=== PATIENT | male | born 1970 | race Caucasian/White ===

== ENCOUNTER 2025-01-18 07:54 | Day surgery (SDC) | payer OTHER, SELFPAY ==
[2025-01-11 12:58] VITALS: BMI 35.6
[2025-01-18] MEDS: LACTATED RINGERS 1,000 ML 42 ML IV ×2 (08:29→12:35)
[2025-01-18] MEDS: ACETAMINOPHEN 325 MG TABLET 975 MG PO (08:30)
[2025-01-18 08:39] VITALS: BP 154/94; PULSE 66; RESP 18; TEMP 36.8; O2SAT 96; BMI 35.6
--- NOTE | 2025-01-18 08:55 | P.HP_ITS ---
History of Present Illness History of Present Illness Date Patient Seen: 01/18/25 Time Patient Seen: 08:55 Chief complaint: SDC Narrative: Sriram comes in for his bilateral inguinal hernia repair and umbilical hernia repair with mesh. See the office note from December 15 for details. PFSH Medical History (Updated 12/15/24 @ 16:28 by Santiago Max MD) Anxiety Hypertension Surgical History (Updated 01/11/25 @ 13:00 by Monalisa Duffy RN) Hx of exploratory laparotomy Hx of hernia repair Social History Smoking Status: Current every day smoker alcohol intake: current Meds Home Medications and Allergies Home Medications Medication Instructions Recorded Confirmed Type atorvastatin 20 mg tablet (Lipitor) 20 mg PO DAILY 12/15/24 12/15/24 History lisinopril 20 mg tablet 20 mg PO DAILY 12/15/24 01/18/25 History Allergies Allergy/AdvReac Type Severity Reaction Status Date / Time No Known Drug Allergies Allergy Verified 01/18/25 08:25 Exam Vital Signs (past 8 hours): - 01/18/25 08:39 Temperature 98.3 F Pulse Rate 66 Respiratory Rate 18 Blood Pressure 154/94 H Pulse Oximetry 96 Const General: healthy appearing Resp Effort & Inspection: normal respiratory effort Assessment & Plan Assessment and plan (1) Bilateral inguinal hernia: Qualifiers: Obstruction and gangrene presence: without obstruction or gangrene Recurrence: not specified as recurrent Qualified Code(s): K40.20 - Bilateral inguinal hernia, without obstruction or gangrene, not specified as recurrent Status: Acute (2) Umbilical hernia: Qualifiers: Obstruction and gangrene presence: without obstruction or gangrene Qualified Code(s): K42.9 - Umbilical hernia without obstruction or gangrene Status: Acute Plan Laparoscopic bilateral inguinal hernia repair and umbilical hernia repair with mesh. Time-Based Coding :: [TOTAL MINUTES] spent with patient and on the chart (including review of chart, obtaining history, exam, reviewing outside data, placing orders, documenting exam and treatment plan, and counseling patient) on [DATE]. PROFEE Business Objects Analyst Document charge(s): No
[2025-01-18] MEDS: CEFAZOLIN 2 GM/100 ML PREMIX 100 ML IV (09:36)
[2025-01-18] MEDS: CEFAZOLIN VIAL 1 GM in SODIUM CHLORIDE 0.9% 100 ML IV (09:36)
[2025-01-18] MEDS: BUPIVACAINE 0.5% W/ EPI (PF) 30 ML VIAL INJ (10:11)
[2025-01-18 12:12] VITALS: BP 160/94; PULSE 83; RESP 21; TEMP 36.3; O2SAT 95
--- NOTE | 2025-01-18 12:15 | PM.OP.1 ---
Operative Date/Time/Diagnoses Date of procedure: 01/18/25 Time of procedure: 12:16 Pre-op diagnosis: Right direct inguinal hernia, left recurrent indirect inguinal hernia and umbilical hernia Post-op diagnosis: same Procedure & Clinicians Procedure: Laparoscopic bilateral inguinal hernia repair with mesh Umbilical hernia repair with mesh Same procedure as scheduled: Yes Surgeon: Santiago Max Manager Technical Support: Andres Rock Anesthesia Type: General Operative Notes Procedure in detail: The patient was given preoperative antibiotics. The patient was brought to the operating room, placed on the table in the supine position with the arms tucked and general anesthesia was induced. The abdomen was prepped and draped in the usual fashion. A time-out was performed. A 1 cm supraumbilical incision was created and dissection was carried down to the fascia. There was a fat containing umbilical hernia. The sac was amputated. The fascial defect was less than 1 cm and had to be opened transversely to 1 cm. The Viraj port was placed and the abdomen was insufflated to 15 mmHg. The camera was inserted and there was no evidence of any injury from the entry. 5 mm ports were placed under direct vision in the mid left and mid right abdomen. The patient was positioned in steep Trendelenburg. We started on the right side. We created a bright peritoneal flap. The peritoneum was dissected off the right cord structures revealing a fat-containing direct defect which was reduced. A large right Bard mesh was brought in and placed over the defect with the medial edge against Manny's ligament. We then closed the peritoneal flap with a running 3-0 barbed suture. Next we turned our attention to the left side. The peritoneum was dissected off the left cord structures. There was a large indirect recurrent defect and there was significant cord fat versus cord lipoma that was reduced. A large left Bard mesh was brought in and placed over the defect with the medial edge against Manny's ligament. Most of the fat was placed into the concavity of the mesh. We then closed the peritoneal flap with a running 3-0 barbed suture. There was a rent in the peritoneum that was repaired with an additional 3-0 barbed suture. We took one last look around the abdomen and saw no other abnormalities. The suture was removed and accounted for. The 5 mm ports were removed under direct vision. The abdomen was desufflated. The Viraj port was removed. Additional local was injected into the fascia and the fascial incision was closed with 2 interrupted [id number] 0 Vicryl sutures. We then cleared some of the subcutaneous adipose tissue off the anterior sheath circumferentially to create space for a mesh. We trimmed a small piece of polypropylene mesh to about 3 cm x [address] it over the repair. It was glued in place with 2 mL of Tisseel. The skin incisions were closed with 4 Monocryl, Steri-Strips and Band-Aids. EBL: 10 mL Specimen: None Andres ENRIQUEZ provided assistance with exposure, retraction and closure of incisions. Post-operative Condition: stable Disposition: PACU
[2025-01-18 12:17] VITALS: BP 152/98; PULSE 80; RESP 20; TEMP 36.4; O2SAT 95
[2025-01-18 12:23] VITALS: BP 153/99; PULSE 79; RESP 20; TEMP 36.4; O2SAT 95
[2025-01-18 12:29] VITALS: BP 155/97; PULSE 78; RESP 18; TEMP 36.4; O2SAT 94
[2025-01-18] MEDS: hydrOXYzine 50 MG/ML INJ 25 MG IM (13:03)
[2025-01-18] MEDS: ONDANSETRON 4 MG/2 ML INJ IV (13:03)
[2025-01-18 13:12] VITALS: BP 150/94; PULSE 64; RESP 16; TEMP 36.2; O2SAT 95
--- NOTE | 2025-01-18 13:42 | PC.NURSE ---
taken out by KYLE Jones
== END 2025-01-18 13:42 | disposition home or self-care (01) ==
PROVIDERS: PCP Family Medicine; Referring Provider Surgery; Visit Provider Surgery
PROC: 0YQ64ZZ Repair Left Inguinal Region, Percutaneous Endoscopic Approach (ICD-10-PCS; CPT 49651; principal; 2025-01-18 09:30)
PROC: (CPT 49651; 2025-01-18 09:30)
DX: K40.91 Unilateral inguinal hernia, without obstruction or gangrene, recurrent (principal); K40.90 Unilateral inguinal hernia, without obstruction or gangrene, not specified as recurrent; K42.9 Umbilical hernia without obstruction or gangrene; F17.210 Nicotine dependence, cigarettes, uncomplicated
CPT/HCPCS: 49651; 49650; C1781; C9250; J0330; J0690; J1100; J1171; J2250; J2405; J2704; J3010; J3410; J3490

== ENCOUNTER → 2025-02-22 06:49 | Outpatient (CLI) | payer OTHER, SELFPAY ==
--- NOTE | 2025-02-22 06:50 | DI.CT.S_ITS ---
PROCEDURE: CT ABDOMEN PELVIS W CON INDICATIONS: Left groin swelling TECHNIQUE: Oral contrast was given in this patient. After the administration of intravenous contrast, axial sections acquired from the lung bases to the pubic symphysis. Coronal and sagittal reformats were performed. For radiation dose reduction, the following was used: automated exposure control, adjustment of mA and/or kV according to patient size. COMPARISON: None. FINDINGS: Image quality: Diagnostic. Lower Chest: No significant findings. ABDOMEN: Liver: No solid mass. Gallbladder: No radiopaque gallstones or wall thickening. Biliary ducts: No biliary dilation. Pancreas: No ductal dilation. Spleen: Size is within normal limits. Adrenal Glands: No adrenal nodules. Kidneys and Ureters: No hydronephrosis. No solid mass. No complex renal cystic lesion which requires follow up.. Stomach and Bowel: Normal colonic caliber, without significant wall thickening. A normal appendix is noted. No dilated loops of small bowel are seen. Peritoneum: No abnormal intraperitoneal fluid. No free air. Ventral Wall: There is a mild amount of fluid density seen involving the umbilicus. Abdominal Nodes: No retroperitoneal or mesenteric adenopathy by size criteria. Vessels: Aorta and inferior vena cava are normal in size. PELVIS: Pelvic Organs: There is a moderate left-sided hydrocele. Bladder: No bladder wall thickening, accounting for underdistention. Pelvic Nodes: No enlarged lymph nodes. Miscellaneous: Moderately sized bilateral fat containing inguinal hernias are seen. Bones: No aggressive osseous abnormality. Age-appropriate bony degenerative changes are seen. Mild transitional lumbar anatomy is seen, with partial lumbarization of the S1 level on the left. IMPRESSION: Moderately sized bilateral fat containing inguinal hernias can be seen. Moderate left-sided hydrocele. A mild amount of fluid density can be seen involving the umbilicus. Additional findings: Transitional S1, which is partially lumbarized on the left Dictated by: Hank Dos Santos M.D. on 02/22/2025 at 12:40 Approved by: Hank Dos Santos M.D. on 02/22/2025 at 12:43
[2025-02-22 07:39] LABS: Estimated Glomerular Filt Rate > 60 mL/min (>60)
== END ==
LOC: CT 06:50
PROVIDERS: PCP Family Medicine; Referring Provider Surgery; Visit Provider Surgery
DX: K40.20 Bilateral inguinal hernia, without obstruction or gangrene, not specified as recurrent (principal); K42.9 Umbilical hernia without obstruction or gangrene; N43.3 Hydrocele, unspecified
CPT/HCPCS: 36415; 74177; 82565; Q9967

== ENCOUNTER 2025-05-25 06:31 | Day surgery (SDC) | payer OTHER, SELFPAY ==
[2025-05-19 09:21] VITALS: BMI 36.6
[2025-05-25] VITALS (9 sets, daily range): BP systolic 123–171; BP diastolic 82–109; PULSE 56–96; RESP 11–17; TEMP 36.2–36.9; O2SAT 93–99; BMI 34.9
--- NOTE | 2025-05-25 06:55 | P.HP_ITS ---
History of Present Illness History of Present Illness Date Patient Seen: 05/25/25 Time Patient Seen: 06:55 Chief complaint: [facility] [place] Narrative: 54 y/o M returns to OR to have a left hydrocelectomy performed for management of his left hydrocele. Briefly, he underwent a laparoscopic bilateral inguinal hernia repair with mesh in late December of 2024. He noted severe swelling and bruising of his scrotum postoperatively. He admits that the bruising has completely resolved and the swelling has decreased by roughly 25%. He was last evaluated in the Urology clinic in February of 2025, however, he left to go fishing in [place] on April 08 for 5 weeks and needed to do so financially. Of note, he does not take any blood thinners or NSAIDs on a regular basis. He had a CT Abd/Pel in late January of 2025 that was notable for moderately sized bilateral fat containing inguinal hernias as well as a moderate sized left hydrocele. FOR[facility]LY [facility] Medical History HLD (hyperlipidemia) Anxiety Hypertension Surgical History Hx of splenectomy (~1988) Hx of bilateral inguinal hernia repair (01/18/25) Hx of exploratory laparotomy Hx of hernia repair Social History alcohol intake: current Meds Home Medications and Allergies Home Medications ?Medication ?Instructions ?Recorded ?Confirmed ?Type atorvastatin 20 mg tablet (Lipitor) 20 mg PO DAILY 05/25/25 History lisinopril 20 mg tablet 20 mg PO DAILY 12/15/2404/28 History Allergies Allergy/AdvReac Type Severity Reaction Status Date / Time No Known Drug Allergies Allergy Verified 05/25/25 06:51 Review of Systems Review of Systems Narrative: CONSTITUTIONAL: Denies weight loss, fevers, chills. HEENT: Denies change in vision, hearing. RESP: Denies SOB, cough. CV: Denies palpations, CP. GI: Denies abdominal pain, nausea, vomiting, diarrhea. : Denies dysuria, hematuria, inability to void. MSK: Denies myalgia, joint pain. SKIN: Denies rash, pruritus. NEURO: Denies headache, syncope. PSYCH: Denies recent change in mood, anxiety, depression. Exam Narrative Exam Narrative: GEN: Alert and oriented X3. No acute distress. Well-nourished. EYES: PERRLA, EOMI. HENT: Moist mucus membranes, no scleral icterus, normal neck ROM. RESP: Unlabored breathing, equal rise and fall of chest bilaterally, no cyanosis appreciated. CV: No peripheral edema, unremarkable heart rate. ABD: Soft, non-tender, non-distended, no palpable masses. : Unremarkable penis, no urethral discharge, no meatal stenosis. Descended right testicle, firm, no testicular mass, small right hydrocele. Unable to definitively palpable left testicle, moderate left hydrocele, left inguinal hernia noted. EXT: No edema, clubbing or cyanosis. SKIN: No rashes or lesions. NEURO: No focal neurologic deficits, CN II-XII grossly intact. PSYCH: Cooperative, appropriate mood and affect. Assessment & Plan Assessment and plan (1) Hydrocele, left: Status: Acute Plan: 54 y/o M noted to have a moderate left hydrocele following a bilateral laparoscopic inguinal hernia repair with mesh. Discussed that his left testicle is otherwise very difficult to definitively palpate, therefore, would not recommend management via percutaneous drainage of his hydrocele in clinic. Discussed that a hydrocele itself does not negatively impact the health of the testicle or its ability to produce testosterone or sperm. Discussed risks of the procedure to include pain, bleeding, infection, 2-3% chance of recurrence, infertility, damage to left spermatic cord leading to testicular atrophy and/or loss, spermatocele formation, poor cosmesis, chronic pain. Discussed that performing either percutaneous drainage or a formal left hydrocelectomy would be complicated by the recurrence of his left inguinal hernia, therefore, would not recommend treatment at this point and would strongly recommend a left hydrocelectomy under the same anesthetic as his repeat inguinal hernia repair. Informed consent was obtained today. (2) Recurrent left inguinal hernia: Status: Acute Plan: Please see plan above and defer to Dr. Max for management of this condition. Time-Based Coding :: [TOTAL MINUTES] spent with patient and on the chart (including review of chart, obtaining history, exam, reviewing outside data, placing orders, documenting exam and treatment plan, and counseling patient) on [DATE]. PROFEE Foiling Machine Operator Document charge(s): Yes Charge Codes Inpatient/observation care including admit and discharge same day: [id number]
[2025-05-25] MEDS: LACTATED RINGERS 1,000 ML 42 ML IV ×2 (07:10→09:52)
[2025-05-25] MEDS: FAMOTIDINE 20 MG/2 ML VIAL IV (07:13)
--- NOTE | 2025-05-25 08:07 | PM.HP.IH.1 ---
History of Present Illness History of Present Illness Date Patient Seen: 05/25/25 Time Patient Seen: 08:07 Chief complaint: SDC Narrative: Sriram is a 55-year-old man with a recurrent left inguinal hernia and a left hydrocele. See the prior office notes for details. PFSH Medical History HLD (hyperlipidemia) Anxiety Hypertension Surgical History Hx of splenectomy (~1988) Hx of bilateral inguinal hernia repair (01/18/25) Hx of exploratory laparotomy Hx of hernia repair Social History Smoking Status: Current every day smoker alcohol intake: current Meds Home Medications and Allergies Home Medications ?Medication ?Instructions ?Recorded ?Confirmed ?Type atorvastatin 20 mg tablet (Lipitor) 20 mg PO DAILY 12/15/24 05/25/25 History lisinopril 20 mg tablet 20 mg PO DAILY 12/15/24 05/25/25 History Allergies Allergy/AdvReac Type Severity Reaction Status Date / Time No Known Drug Allergies Allergy Verified 05/25/25 06:51 Exam Vital Signs (past 8 hours): - 05/25/25 06:59 Temperature 97.5 F L Pulse Rate 96 H Respiratory Rate 17 Blood Pressure 171/109 H Pulse Oximetry 97 Oxygen Delivery Method Room Air Oxygen Delivery Method Room Air Narrative Exam Narrative: Recurrent left inguinal hernia Assessment & Plan Assessment and plan (1) Recurrent left inguinal hernia: Status: Acute (2) Hydrocele, left: Status: Acute Plan Open left inguinal hernia repair with mesh Time-Based Coding :: [TOTAL MINUTES] spent with patient and on the chart (including review of chart, obtaining history, exam, reviewing outside data, placing orders, documenting exam and treatment plan, and counseling patient) on [DATE]. PROFEE Director Informatics Document charge(s): No
[2025-05-25] MEDS: CEFAZOLIN 2 GM/100 ML PREMIX 100 ML IV (08:29)
--- NOTE | 2025-05-25 08:45 | SUR.OPER ---
Supine on padded OR bed, head on pillow, arms secured on padded arm boards at <90 degrees abduction, legs uncrossed, safety belt at lower legs, tape over blanket over lower legs.
[2025-05-25] MEDS: BUPIVACAINE 0.5% (PF) 30 ML VIAL INJ (08:54)
[2025-05-25] MEDS: LIDOCAINE 1% 20 ML INJ (08:55)
[2025-05-25] MEDS: ACETAMINOPHEN IV 1,000 MG/100 ML VIAL 400 MG IV (08:57)
--- NOTE | 2025-05-25 09:28 | P.OP_ITS ---
Operative Date/Time/Diagnoses Date of procedure: 05/25/25 Time of procedure: 09:29 Pre-op diagnosis: Left hydrocele Post-op diagnosis: same Procedure & Clinicians Procedure: Left hydrocelectomy Same procedure(s) as scheduled: Yes Indications: 54 y/o M noted to have a moderate left hydrocele following a bilateral laparoscopic inguinal hernia repair with mesh. Discussed that his left testicle is otherwise very difficult to definitively palpate, therefore, would not recommend management via percutaneous drainage of his hydrocele in clinic. Discussed that a hydrocele itself does not negatively impact the health of the testicle or its ability to produce testosterone or sperm. Discussed risks of the procedure to include pain, bleeding, infection, 2-3% chance of recurrence, infertility, damage to left spermatic cord leading to testicular atrophy and/or loss, spermatocele formation, poor cosmesis, chronic pain. Discussed that performing either percutaneous drainage or a formal left hydrocelectomy would be complicated by the recurrence of his left inguinal hernia, therefore, would not recommend treatment at this point and would strongly recommend a left hydrocelectomy under the same anesthetic as his repeat inguinal hernia repair. Informed consent was obtained today. Surgeon: Esteban Medina Click Yes if Unassisted: Yes Anesthesia Type: General Operative Notes Findings: Moderate sized left hydrocele Closure Type: primary Specimen(s): none sent Applied: none Estimated Blood Loss (mL): 10 Blood products transfused: none Procedure in detail: Patient was identified in the preoperative holding area and consent confirmed. He was then brought to the operating room and placed supine on the operating room table where general anesthesia was induced. All bony prominences were then properly padded and he was prepped and draped in the standard sterile fashion. A surgical timeout was conducted and all members of the operating team were in agreement. A 5cm transverse incision was marked on the left hemiscrotum using a marking pen. This was then incised using a 15 blade. The dissection was then carried down through the subcutaneous tissue and dartos fascia using bovie electrocautery. The hydrocele sac was then delivered onto the operative field through the incision. The testicle was noted to be at the inferior pole of the hydrocele sac. After freeing the hydrocele sac circumferentially from the vic rounding dartos fascia, the hydrocele sac was entered using bovie electrocautery and the fluid was manually evacuated. Throughout the entire procedure, care was taken to avoid the left testicle and spermatic cord, which were both preserved at case end. Excess hydrocele sac was then ligated using bovie electrocautery. The edges of tunica vaginalis were then oversewn using 3-0 Vicryl in a running fashion. The scrotum was then inspected for hemostasis, which was noted to be excellent. A chyna drain was then brought out the inferior most portion of his left hemiscrotum and secured to the skin using a 3-0 Nylon stitch. The left testicle was placed back into the left hemiscrotum in correct anatomic position and without twisting of the spermatic cord. The incision was then closed in two separate layers. Dartos was reapproximated using 3-0 Vicryl in a running fashion. The skin edges were then reapproximated using 3-0 Chromic in a running horizontal mattress fashion. Bacitracin was then applied to the incision. A total of 20cc of 1:1 mixture of 1% Lidocaine plain and 0.5% Marcaine plain was used for incision and cord block anesthetic. Fluff gauze and scrotal support was then placed over the incision. Anesthesia was reversed, he was extubated in the OR and transferred to the PACU in stable condition for recovery. Complications: none Post-operative Condition: stable Disposition: PACU Plan for aftercare: Discharge home from PACU. Will return to Urology clinic on 27 May 2025 at 1300 to have the drain removed from his scrotum.
--- NOTE | 2025-05-25 10:25 | PM.OP.1 ---
Operative Date/Time/Diagnoses Date of procedure: 05/25/25 Time of procedure: 10:25 Pre-op diagnosis: Recurrent left inguinal hernia Post-op diagnosis: same Procedure & Clinicians Procedure: Open recurrent left inguinal hernia repair with mesh Same procedure(s) as scheduled: Yes Surgeon: Santiago Max [facility] Paramedic: Andres Rock Anesthesia Type: General Operative Notes Findings: Bulky left cord fat with no obvious indirect sac or direct defect Applied: none and other Estimated Blood Loss (mL): 5 Procedure in detail: Preoperative antibiotic was administered. The patient was brought to the operating room and placed on the table in supine position general anesthesia was induced. The left groin was prepped and draped in the normal fashion and a time-out was performed. Roughly 10 mL of local anesthetic were injected into the skin and subcutaneous adipose tissue over the left groin. A 6 cm incision was made over the left inguinal canal. Dissection was carried down through the subcutaneous adipose tissue. A bridging vein was cauterized. We exposed the external oblique aponeurosis in the direction of the fibers. Additional local was injected deep to the aponeurosis. A 15 blade scalpel was used to oswaldo the external oblique aponeurosis. Metzenbaum scissors were used to carefully open the aponeurosis in the direction of the fibers taking care not to injure the underlying ilioinguinal nerve which was well seen and protected. We completely exposed the inguinal canal. The cord was dissected free from the inguinal ligament and floor of the inguinal canal and the external oblique aponeurosis was dissected off of the internal oblique taking care not to injure the hypogastric nerve. We encircled the cord with a [place] drain for retraction. There was no obvious direct defect. There was no obvious indirect sac. There was bulky cord fat that some of which was able to be reduced back through the internal ring. We placed a polypropylene mesh over the inguinal canal floor. The mesh was secured with multiple interrupted 3-0 Prolene sutures to the pubic tubercle and shelving edge of the inguinal ligament as well as to the conjoint tendon medially. We overlapped the tails to recreate an internal ring and secured the medial tail to the inguinal ligament with additional sutures. We injected some more local into the fatty tissue in the inguinal canal and cord. Finally, we removed the Jennifer drain and closed the external oblique fascia with a running 3-0 Vicryl suture. Skin was closed with interrupted 3-0 Vicryl dermal sutures and a running 4 Monocryl subcuticular stitch. EBL 5 mL The patient was awakened and brought to recovery room. Complications: none Post-operative Condition: stable Disposition: PACU
[2025-05-25] MEDS: ONDANSETRON 4 MG/2 ML INJ IV ×2 (10:56→11:44)
--- NOTE | 2025-05-25 12:27 | SUR.PHASEII ---
cont's to complain of nausea and vomiting.new orders received for reglan iv and scopalamine patch.
[2025-05-25] MEDS: SCOPOLAMINE 1 PATCH TOP (12:40)
[2025-05-25] MEDS: METOCLOPRAMIDE 10 MG/2 ML INJ IV (12:41)
== END 2025-05-25 13:50 | disposition home or self-care (01) ==
PROVIDERS: Urology; PCP Family Medicine; Referring Provider Surgery; Visit Provider Surgery
PROC: (CPT 49520; principal; 2025-05-25 07:45)
PROC: (CPT 55040; 2025-05-25 07:45)
DX: K40.91 Unilateral inguinal hernia, without obstruction or gangrene, recurrent (principal); N43.3 Hydrocele, unspecified
CPT/HCPCS: 49520; 55040; C1781; J0131; J0690; J1100; J1171; J1885; J2250; J2405; J2704; J2765; J3010; J3475; J3490

== ENCOUNTER → 2025-10-17 06:59 | Outpatient (CLI) | payer OTHER, SELFPAY ==
--- NOTE | 2025-10-17 07:01 | DI.CT.S_ITS ---
PROCEDURE: CT ABDOMEN PELVIS W CON INDICATIONS: Recurrent left inguinal TECHNIQUE: After the administration of intravenous contrast, axial sections acquired from the lung bases to the pubic symphysis. Coronal and sagittal reformats were performed. For radiation dose reduction, the following was used: automated exposure control, adjustment of mA and/or kV according to patient size. COMPARISON: [facility], CT, CT ABDOMEN PELVIS W CON, 02/22/2025, 8:27. FINDINGS: Image quality: Diagnostic. Lower Chest: No significant findings. ABDOMEN: Liver: No solid mass. Gallbladder: No radiopaque gallstones or wall thickening. Biliary ducts: No biliary dilation. Pancreas: No ductal dilation. Spleen: Size is within normal limits. Adrenal Glands: No adrenal nodules. Kidneys and Ureters: No hydronephrosis. No solid mass. No complex renal cystic lesion which requires follow up. Punctate nonobstructing stone on the right. Stomach and Bowel: Normal colonic caliber, without significant wall thickening. Colonic diverticulosis without evidence of diverticulitis. Peritoneum: No abnormal intraperitoneal fluid. No free air. Ventral Wall: No significant ventral hernia. Abdominal Nodes: No retroperitoneal or mesenteric adenopathy by size criteria. Vessels: Aorta and inferior vena cava are normal in size. PELVIS: Pelvic Organs: Unremarkable. Bladder: Submucosal fat deposition with associated calcification in the anterior bladder wall. Pelvic Nodes: No enlarged lymph nodes. Miscellaneous: Bilateral inguinal hernia repair. There is fat located within the right inguinal canal, which does not appear to originate from the peritoneum. There is a left indirect inguinal hernia which passes along the lateral aspect of the hernia mesh. Bones: No aggressive osseous abnormality. IMPRESSION: Subcostal fat deposition with associated calcification in the anterior bladder wall. The submucosal fat deposition usually indicates chronic inflammatory changes. The presence of calcification may be related, but could also indicate a rare urachal type malignancy. Recommend dedicated cystoscopy. Bilateral inguinal hernia repair. There is fat located within the right inguinal canal, which does not appear to originate from the peritoneum. There is a left indirect inguinal hernia which passes along the lateral aspect of the hernia mesh. Dictated by: Derek Castillo M.D. on 10/17/2025 at 11:30 Approved by: Derek Castillo M.D. on 10/17/2025 at 11:35
[2025-10-17 07:51] LABS: Estimated Glomerular Filt Rate > 60 mL/min (>60)
== END ==
PROVIDERS: PCP Family Medicine; Referring Provider Surgery; Visit Provider Surgery
DX: K40.91 Unilateral inguinal hernia, without obstruction or gangrene, recurrent (principal); K57.90 Diverticulosis of intestine, part unspecified, without perforation or abscess without bleeding; R10.32 Left lower quadrant pain
CPT/HCPCS: 36415; 74177; 82565; Q9967